=== PATIENT | male | born 1955 | race American Indian/Alaskan Native ===

== ENCOUNTER 2021-08-12 11:23 | Outpatient (CLI) | payer MEDICAID ==
--- NOTE | 2021-08-12 12:57 | Ultrasound Report ---
ULTRASOUND RENAL INDICATION / CLINICAL INFORMATION: Chronic renal disease.. COMPARISON: None available. FINDINGS: RIGHT KIDNEY: Length = 9.2 cm. [normal > 9 cm] - Parenchymal Thickness = 1.5 cm. [normal > 1.5 cm] - Echogenicity: Normal. - Hydronephrosis: None. - Cyst or mass: No significant abnormality. - Stones: None seen. LEFT KIDNEY: Length = 8.6 cm. [normal > 9 cm] - Parenchymal Thickness = 1.5 cm. [normal > 1.5 cm] - Echogenicity: Normal. - Hydronephrosis: None. - Cyst or mass: No significant abnormality. - Stones: None seen. URINARY BLADDER: Poorly evaluated due to largely collapsed state. FREE FLUID: None. ADDITIONAL FINDINGS: None. IMPRESSION: No acute findings. Specifically, no evidence of hydronephrosis. Renal cortical thickness is within the lower limits of normal. Signer Name: Jeremiah Orellana MD Signed: 08/12/2021 12:53 PM Workstation Name: [id number]
== END 2021-08-12 11:24 | disposition home or self-care (01) ==
LOC: US 11:23
PROVIDERS: ATTEND Specialist
DX: N18.2 Chronic kidney disease, stage 2 (mild) (principal)
CPT/HCPCS: 76770